=== PATIENT | male | born 1965 | race Caucasian/White ===

== ENCOUNTER 2021-03-07 08:44 | Emergency (ER) | payer BC, SELFPAY ==
--- NOTE | 2021-03-07 08:55 | XR_ITS ---
WS: [id number] Portable AP upright chest, 03/07/2021 Clinical Data: COVID +, sob Comparison: PA and lateral chest, 03/13/2007. Findings: No nodules, masses or effusions are seen. The heart is normal. The pulmonary vascularity is not increased. No pneumonia or pneumothorax is seen. XR/XR chest 1V portable [id number] Impression: Negative chest.
--- NOTE | 2021-03-07 08:56 | ED_ITS ---
HPI - COVID General: Stated Complaint: SOB, DIZZY, ABD PAINS COVID + Time Seen by Provider: 03/07/21 09:14 History of Present Illness: HPI Narrative: Patient presents with Covid symptoms. Patient tested positive at the walk-in clinic last Sunday. Symptoms started on Sunday the patient is interested in [facility] infusion if available said he has been having diarrhea and low back pain and feels nauseous. MD complaint: known COVID positive Prior covid testing: yes, results known Prior testing date: 02/27/21 COVID 19 common symptoms: positive fever(s), chills, non-productive cough, dyspnea (Shortness of breath he says very mild), fatigue, body aches, headache(s), loss of sense of smell and/or taste, nausea and diarrhea; negative throat pain COVID 19 other sytmptoms: negative chest pain Treatment prior to arrival: acetaminophen and ibuprofen COVID Results: No Data to Display Review of Systems Const: Reports: fever(s), chills, body aches and fatigue Eyes: Denies: change in vision ENMT: Denies: throat pain Card: Denies: chest pain Resp: Reports: dyspnea (Shortness of breath he says very mild) and non- productive cough GI: Reports: nausea and diarrhea Musc: Reports: back pain (He said muscles are hurting across low back) Skin/Breast: Denies: rash Neuro: Reports: headache(s) MDM - COVID MDM Narrative: Medical decision making narrative: Patient is Covid positive patient. Patient states his back is been hurting along with his other muscles. He said he has had mild shortness of breath. His sats have stayed above 90 even when laying down. He was seen at [facility] walk-in clinic and they sent him up here. Patient does not appear in acute distress is able ambulate without difficulty is breathing fine sats maintained 96 to 98% while in the Covid waiting room. I spoke with the at length about his symptoms, prognosis, plan of care. COVID Results: No Data to Display Discharge Plan Discharge Patient Disposition: Home Clinical Impression: COVID-19 Condition: Stable Prescriptions: New Zofran 4 mg tablet 4 mg PO Q8H 3 Days Qty: 9 RF: 0 Decadron 6 mg tablet 6 mg PO DAILY Qty: 7 RF: 0 Lomotil 2.5-0.025 mg tablet 1 tab PO TID PRN (Reason: diarrhea) Qty: 10 RF: 0 Discharge Orders: Discharge ED (Routine); Ordered 03/07/21 Ordered By: Pablo Walker Other Ambulatory Orders: Request for MCA (Routine) Timeframe: 1 Day Facility: [facility] - Location: Outpatient [facility] Services Ordered By: Pablo Walker Referrals: Dinh Cullen [Primary Care Provider] - Discharge Diet: Advance as tolerated Discharge Activity: Increase activity as tolerated Patient Instructions: COVID-19 (Coronavirus Disease 2019) (ED) Activity Restrictions/Additional Instructions: Follow-up with medical provider as directed. Take medications as prescribed. Return to the ER or your medical provider if condition worsens. Please read and understand discharge instructions. If any questions ask please. Call the monoclonal antibody infusion hotline at [phone] and discuss it them appointment time the order for the infusion has already been placed in your chart. Coding Level of Care Code ED [employer] Supervisor for Eloy Walker
[2021-03-07 09:45] VITALS: BP 119/73; PULSE 85; RESP 19; TEMP 37.3; O2SAT 95; BMI 40.4
--- NOTE | 2021-03-07 10:34 | PC.NURSE ---
this pt seen/discharged by Nurse practitioner in waiting room. Nursing assessment not done.
== END 2021-03-07 09:50 | disposition home or self-care (01) ==
PROVIDERS: Emergency Provider Nurse Practitioner Family; PCP Family Medicine
DX: U07.1 COVID-19 (principal)
CPT/HCPCS: 71045; 99282

== ENCOUNTER 2021-03-07 14:32 | Outpatient (CLI) | payer BC, SELFPAY ==
[2021-03-07 14:53] LABS: D Dimer 0.54 ug/mIFEU (0-0.59)
== END 2021-03-07 14:33 | disposition home or self-care (01) ==
LOC: LAB 14:34
PROVIDERS: PCP Family Medicine; Visit Provider Physician Assistant
DX: U07.1 COVID-19 (principal)
CPT/HCPCS: 85378

== ENCOUNTER 2021-12-30 10:31 | Outpatient (CLI) | payer OTHER, SELFPAY ==
--- NOTE | 2021-12-30 10:48 | ECG_ITS ---
[facility] Test Date: 2021-12-30 Pat Name: Mayito Caballero Department: Room: Gender: Male Housing Project Manager: : 1965 Requested By: [employer] Order Number: [id number] Sheryl MD: Stepan Ramirez M.D. Measurements Intervals [place] Rate: 68 P: 14 NC: 192 QRS: 53 QRSD: 93 T: 30 QT: 355 QTc: 379 Interpretive Statements SINUS RHYTHM No previous ECG available for comparison Electronically Signed On 01-02-2022 18:35:20 EDUCATIONAL THERAPIST by Stepan Ramirez M.D. [id number]
== END 2021-12-30 10:32 | disposition home or self-care (01) ==
PROVIDERS: Visit Provider Specialist
DX: Z01.810 Encounter for preprocedural cardiovascular examination (principal); R22.1 Localized swelling, mass and lump, neck
CPT/HCPCS: 93005

== ENCOUNTER 2023-05-29 14:07 | Outpatient (CLI) | payer OTHER, SELFPAY ==
--- NOTE | 2023-05-29 14:28 | MR_ITS ---
WS: [id number] MRI RIGHT KNEE HISTORY: Derangement of rt knee COMPARISON: Radiograph 04/30/2023 Anterior cruciate ligament: Abnormal signal throughout the ACL. There is at least a partial tear of t he posterior band distally. There is also mucoid degeneration of the ligament. Posterior cruciate ligament: Intact. Medial collateral ligament: Small amount of fluid adjacent to the MCL. No tear. Posterior lateral corner structures: Mild thickening and increased T2 signal in the posterolateral co rner structures, greatest involving the popliteus tendon. Medial menisci: Small caliber posterior horn with abnormal signal extending through the mid body and also the free edge. Mild subluxation of the anterior horn. Lateral meniscus: Abnormal signal throughout both anterior and posterior horns consistent with comple x tears. Very little normal meniscal signal is evident. Extensor mechanism: Distal quadriceps tendon and patellar tendons are intact. Fluid and soft tissue: Moderate joint effusion. Foci of intermediate and low signal within the joint effusion. Small loose bodies are present. Very small Aguirre's cyst. There is a additional synovial thi ckening in all 3 compartments. Osseous and articular structures: Patellofemoral compartment: Mild lateral subluxation of the patella may be related to extension of th e knee. Mild diffuse cortical thinning along the patellar surface. Medial compartment: Moderate narrowing the medial compartment with marginal osteophytes. Severe chond romalacia. Lateral compartment: Severe narrowing of the lateral compartment with severe chondromalacia. Marginal osteophytes. Lobulated cystic mass associated with the medial head of the gastrocnemius tendon. This is probably a small ganglion posterior to the medial femoral condyle. Additional complex cystic mass along the pop liteus tendon. IMPRESSION: 1. Tricompartment advanced degenerative changes throughout the knee with synovial thickening and ost eophytosis. 2. Severe narrowing of the lateral compartment with severe chondromalacia. Moderate narrowing of the medial compartment. 3. Moderate joint effusion with numerous loose bodies in the joint effusion. These may be osseous or cartilaginous fragments. 4. Partial tear of the ACL. The posterior band is partially torn. Otherwise mucoid degeneration. 5. Diffuse meniscal tears throughout the anterior and posterior horns of the lateral meniscus. 6. Small caliber posterior horn medial meniscus with tears.
== END 2023-05-29 14:08 | disposition home or self-care (01) ==
LOC: RAD 14:07
PROVIDERS: PCP Physician Assistant; Visit Provider Physician Assistant
DX: S83.511A Sprain of anterior cruciate ligament of right knee, initial encounter (principal); S83.281A Other tear of lateral meniscus, current injury, right knee, initial encounter; S83.241A Other tear of medial meniscus, current injury, right knee, initial encounter; M23.8X1 Other internal derangements of right knee; M17.11 Unilateral primary osteoarthritis, right knee; M94.261 Chondromalacia, right knee; M25.461 Effusion, right knee; M25.512 Pain in left shoulder; X58.XXXA Exposure to other specified factors, initial encounter
CPT/HCPCS: 73721

== ENCOUNTER 2023-06-12 16:32 | Outpatient (CLI) | payer OTHER, SELFPAY ==
--- NOTE | 2023-06-12 16:47 | MR_ITS ---
WS: [id number] MRI LEFT SHOULDER HISTORY: Left shoulder pain COMPARISON: Radiograph 05/11/2023 TECHNIQUE: Multiplanar sequences of the shoulder joint are submitted. Moderate AC joint arthritis. Fluid through the AC joint with hypertrophic osteophyte formation. Humeral head is high riding abutti ng the undersurface of the acromion. Moderate fluid in the subacromial and subdeltoid bursa. No os ac romion. Biceps tendon is dislocated. High riding humeral head with complete tear with retraction of the supraspinatus. Supraspinatus tendo n is retracted to the glenoid. Significant fraying of the retracted supraspinatus. Severe supraspinat us muscle atrophy. Severe tendinopathy of the distal subscapularis tendon. The biceps tendon is dislo cated lateral to the tendon. At least a partial tear of the subscapularis tendon. The tendon appears thinned distally. Fluid in the subscapularis recess. No significant atrophy of the subscapularis musc le. Severe atrophy of the infraspinatus muscle. The distal insertion site tear. There is a large amou nt of fluid extending along the infraspinatus tendon sheath. Teres minor is normal size. Severe degenerative changes involving the labrum. There is increased low signal in the glenohumeral j oint which may be loose bodies of cartilage or bone. MR/MR shoulder LT wo con* [id number] IMPRESSION: 1. Severe advanced degenerative changes involving the shoulder. 2. Torn retracted supraspinatus tendon with severe supraspinatus muscle atroph y. 3. Large insertion site tear with interstitial extension infraspinatus tendon with severe muscle atrophy. 4. Dislocated biceps tendon, positioned lateral to the subscapularis tendon. 5. Marked tendinopathy and probable tear within the distal subscapularis tendo n. 6. Joint effusion with loose bodies. 7. Moderate AC joint arthritis.
== END 2023-06-12 16:33 | disposition home or self-care (01) ==
LOC: RAD 16:32
PROVIDERS: PCP Physician Assistant; Visit Provider Physician Assistant
DX: M23.91 Unspecified internal derangement of right knee (principal); M19.012 Primary osteoarthritis, left shoulder; M75.102 Unspecified rotator cuff tear or rupture of left shoulder, not specified as traumatic; M25.412 Effusion, left shoulder; M24.012 Loose body in left shoulder
CPT/HCPCS: 73221